=== PATIENT | male | born 1990 | race Caucasian/White ===

== ENCOUNTER 2024-07-03 01:48 | Day surgery (SDC) | payer BC ==
[2024-07-03] MEDS ORDERED: Lidocaine HCl 4% Cream 5 GM ONE (08:35)
== END 2024-07-03 23:00 | disposition home or self-care (01) ==
LOC: WOUND 01:48
DX: T24.211A Burn of second degree of right thigh, initial encounter (principal); X10.0XXA Contact with hot drinks, initial encounter; E03.9 Hypothyroidism, unspecified
CPT/HCPCS: A9270; G0463

== ENCOUNTER 2024-07-09 00:39 | Day surgery (SDC) | payer BC ==
[2024-07-09] MEDS ORDERED: Lidocaine HCl 4% Cream 5 GM ONE (14:02)
== END 2024-07-09 23:15 | disposition home or self-care (01) ==
LOC: WOUND 00:39
DX: T24.231A Burn of second degree of right lower leg, initial encounter (principal); X10.0XXA Contact with hot drinks, initial encounter
CPT/HCPCS: A9270

== ENCOUNTER 2024-07-16 00:35 | Day surgery (SDC) | payer BC ==
[2024-07-16] MEDS ORDERED: Lidocaine HCl 4% Cream 5 GM ONE (09:29)
== END 2024-07-16 23:00 | disposition home or self-care (01) ==
LOC: WOUND 00:35
DX: T24.211A Burn of second degree of right thigh, initial encounter (principal); X10.0XXA Contact with hot drinks, initial encounter; E03.9 Hypothyroidism, unspecified
CPT/HCPCS: A9270

== ENCOUNTER 2024-07-23 00:35 | Day surgery (SDC) | payer BC ==
[2024-07-23] MEDS ORDERED: Lidocaine HCl 4% Cream 5 GM ONE (09:56)
== END 2024-07-23 23:00 | disposition home or self-care (01) ==
LOC: WOUND 00:35
DX: T24.231A Burn of second degree of right lower leg, initial encounter (principal); E03.9 Hypothyroidism, unspecified; X10.0XXA Contact with hot drinks, initial encounter
CPT/HCPCS: A9270

== ENCOUNTER 2024-07-30 03:42 | Day surgery (SDC) | payer BC | END 2024-07-30 23:15 | disposition home or self-care (01) | LOC: WOUND 03:42 | DX: T24.231A Burn of second degree of right lower leg, initial encounter (principal); X10.0XXA Contact with hot drinks, initial encounter | CPT/HCPCS: G0463 ==

== ENCOUNTER 2024-08-06 03:57 | Day surgery (SDC) | payer BC | END 2024-08-06 23:10 | disposition home or self-care (01) | LOC: WOUND 03:57 | DX: Z09 Encounter for follow-up examination after completed treatment for conditions other than malignant neoplasm (principal); Z87.828 Personal history of other (healed) physical injury and trauma; E03.9 Hypothyroidism, unspecified | CPT/HCPCS: G0463 ==